=== PATIENT | male | born 1955 | race Caucasian/White ===

== ENCOUNTER 2019-08-22 19:34 | Emergency (ER) | payer MEDICAID ==
[~2019-08-22] VITALS: Ht 170.2 cm; Wt 116.8 kg
[~2019-08-22 19:34] MED LIST: ATENOLOL PO; LISINOPRIL PO; PRAVASTATIN PO
[2019-08-22 20:04] LABS: BASOPHILS # (AUTO) 0.1 X10'3 (0-0.2); EOSINOPHILS # (AUTO) 0.4 X10'3 (0-0.9); EOSINOPHILS % (AUTO) 3.3 % (0-6); HEMOGLOBIN 16.1 g/dl (14.0-17.9); LYMPHOCYTES # (AUTO) 2.3 X10'3 (1.1-4.8); LYMPHOCYTES % (AUTO) 20.8 % (21-51); MEAN CORPUSCULAR HEMOGLOBIN 31.8 PG (27.0-31.0); MEAN CORPUSCULAR VOLUME 90.8 FL (78-98); MEAN PLATELET VOLUME 8.4 FL (7.4-10.4); MONOCYTES # (AUTO) 0.8 X10'3 (0-0.9); MONOCYTES % (AUTO) 7.6 % (2-12); NEUTROPHILS # (AUTO) 7.4 X10'3 (1.8-7.7); NEUTROPHILS % (AUTO) 67.3 % (42-75); PLATELET COUNT 243 X10'3 (140-440); RED BLOOD COUNT 5.06 X10'6 (4.70-6.10); RED CELL DISTRIBUTION WIDTH 14.5 % (11.5-14.5); WHITE BLOOD COUNT 10.9 X10'3 (4.5-11.0)
[2019-08-22 20:18] LABS: ALANINE AMINOTRANSFERASE 38 U/L (12-78); ALBUMIN 4.3 G/DL (3.4-5.0); ALBUMIN/GLOBULIN RATIO 1.1 (1.1-1.5); ALKALINE PHOSPHATASE 106 IU/L (46-116); ANION GAP 11 (8-16); ASPARTATE AMINO TRANSFERASE 22 U/L (10-37); BILIRUBIN,TOTAL 0.7 MG/DL (0.1-1.0); BLOOD UREA NITROGEN 15 MG/DL (7-18); BUN/CREATININE RATIO 15.5 (5.4-32.0); CALCIUM 9.5 MG/DL (8.5-10.1); CHLORIDE 104 MMOL/L (99-107); CREATININE 0.97 MG/DL (0.60-1.10); GLUCOSE 102 MG/DL (70-104); POTASSIUM 4.1 MMOL/L (3.5-5.1); SODIUM 139 MMOL/L (135-145); TOTAL PROTEIN 8.1 G/DL (6.4-8.2); eGFR 78 ML/MIN
[2019-08-22 20:22] LABS: TROPONIN I < 0.04 NG/ML (0.0-0.05)
[2019-08-22 20:41] LABS: PARTIAL THROMBOPLASTIN TIME 30 SECONDS (22-32)
[2019-08-22 20:55] VITALS: BP 109/68
== END 2019-08-22 20:57 | disposition home or self-care (01) ==
LOC: ER 19:35
DX: I48.20 Chronic atrial fibrillation, unspecified (principal); E78.00 Pure hypercholesterolemia, unspecified; I10 Essential (primary) hypertension; G47.30 Sleep apnea, unspecified; Z87.891 Personal history of nicotine dependence
CPT/HCPCS: 36415; 71045; 80053; 84484; 85025; 85610; 85730; 93005; 99284

== ENCOUNTER 2020-03-06 01:31 | Emergency (ER) | payer MEDICAID ==
[~2020-03-06] VITALS: Ht 170.2 cm; Wt 116.8 kg
[2020-03-06] MEDS ORDERED: APIX5TAB3 PO (01:53)
[2020-03-06 01:54] LABS: BASOPHILS # (AUTO) 0.1 X10'3 (0-0.2); BASOPHILS % (AUTO) 0.8 % (0-1); EOSINOPHILS # (AUTO) 0.3 X10'3 (0-0.9); EOSINOPHILS % (AUTO) 3.1 % (0-6); HEMATOCRIT 45.2 % (42.0-52.0); HEMOGLOBIN 15.3 g/dl (14.0-17.9); LYMPHOCYTES # (AUTO) 2.5 X10'3 (1.1-4.8); LYMPHOCYTES % (AUTO) 27.8 % (21-51); MEAN CORPUSCULAR HEMOGLOBIN 31.2 PG (27.0-31.0); MEAN CORPUSCULAR HGB CONC 33.9 g/dL (33.0-36.5); MEAN CORPUSCULAR VOLUME 92.2 FL (78-98); MEAN PLATELET VOLUME 8.4 FL (7.4-10.4); MONOCYTES # (AUTO) 0.8 X10'3 (0-0.9); MONOCYTES % (AUTO) 8.7 % (2-12); NEUTROPHILS # (AUTO) 5.4 X10'3 (1.8-7.7); NEUTROPHILS % (AUTO) 59.6 % (42-75); PLATELET COUNT 248 X10'3 (140-440)
[2020-03-06] MEDS ORDERED: FLUT16SP10 NAS (01:55)
[2020-03-06 02:02] LABS: ALANINE AMINOTRANSFERASE 34 U/L (12-78); ALBUMIN 4.2 G/DL (3.4-5.0); ALBUMIN/GLOBULIN RATIO 1.4 (1.1-1.5); ALKALINE PHOSPHATASE 93 IU/L (46-116); ANION GAP 7 (8-16); ASPARTATE AMINO TRANSFERASE 24 U/L (10-37); BILIRUBIN,TOTAL 0.5 MG/DL (0.1-1.0); BLOOD UREA NITROGEN 17 MG/DL (7-18); BUN/CREATININE RATIO 14.8 (5.4-32.0); CALCIUM 9.2 MG/DL (8.5-10.1); CHLORIDE 106 MMOL/L (99-107); CREATININE 1.15 MG/DL (0.60-1.10); GLUCOSE 122 MG/DL (70-104); POTASSIUM 3.9 MMOL/L (3.5-5.1); SODIUM 140 MMOL/L (135-145); TOTAL PROTEIN 7.3 G/DL (6.4-8.2); eGFR 64 ML/MIN
[2020-03-06 02:10] LABS: LIPASE 226 U/L (73-393)
[2020-03-06] MEDS ORDERED: metoclopramide 5 mg/ml inj IV ONE (02:20)
[2020-03-06 03:29] VITALS: BP 146/78
== END 2020-03-06 03:27 | disposition home or self-care (01) ==
LOC: ER 01:31
DX: K80.50 Calculus of bile duct without cholangitis or cholecystitis without obstruction (principal); E66.01 Morbid (severe) obesity due to excess calories; I48.91 Unspecified atrial fibrillation; E78.00 Pure hypercholesterolemia, unspecified; I10 Essential (primary) hypertension; Z98.890 Other specified postprocedural states; Z79.899 Other long term (current) drug therapy; Z79.01 Long term (current) use of anticoagulants
CPT/HCPCS: 36415; 71045; 76700; 80053; 83690; 84484; 85025; 93005; 96374; 99285; J2765

== ENCOUNTER 2025-05-24 10:38 | Emergency (ER) | payer MEDICARE, MEDICAID ==
[~2025-05-24] VITALS: Ht 170.2 cm; Wt 85.0 kg
[~2025-05-24 10:38] MED LIST changes: +APIX5TAB3 PO; +FLUT16SP10 NAS
[2025-05-24 10:42] VITALS: BP 132/85; PULSE 82; RESP 16; TEMP 97; O2SAT 97
[2025-05-24] MEDS ORDERED: MECL-302 PO (11:08)
--- NOTE | 2025-05-24 11:08 | Physician Documentation ---
History of Present Illness ~ Chief Complaint: See Chief Complaint Stated Complaint: DIZZINESS Time Seen by MD: 10:46 OK to notify your PCP?: Yes Primary Medical Doctor: TANISHA Source: patient Mode of Arrival: POV Exam Limitations: no limitations HPI This is a 62-year-old male who comes in complaining of a couple episodes of dizziness. The patient states that is in the past couple of days he said it an episode or two of feel like the room was spinning when he bent over to tie his shoes. The episodes were very brief. He denies visual disturbances. He denies distal numbness tingling weakness. He denies change in mental status. They went to an urgent care yesterday who told him he. Well however the patient wanted to get seen again. Right now he states he has not no symptoms Medication Reconciliation Allergies: Coded Allergies: No Known Allergies (Unverified , 07/06/14) Scheduled Apixaban (Eliquis), 1 TAB PO Q12H, (Reported) Fluticasone Propionate (Flonase), 50 MG BECKY PRN, (Reported) [Atenolol], PO DAILY, (Reported) [Lisinopril], PO DAILY, (Reported) [Pravastatin], PO DAILY, (Reported) Past Medical History Past Medical History: Atrial Fibrillation, High Cholesterol, Hypertension, *PULMONARY*, Hernia Other Past Surgical History: Hernia repair surgery Alcohol Use: None Drug Use: none Lives In: Home Physical Exam Vital Signs: Temperature: 97.0, Source: Temporal, Heart Rate: 82, Respiratory Rate: 16, BP: 132/85, Pulse Oximetry: 97, Weight: 85.030 Pulse Oximetry Reflects: adequate oxygenation General Appearance: alert, WD/WN, no apparent distress Neck: non-tender, full range of motion Pupils/EOM/Fundus: PERRLA, EOM intact EENT: normal ENT inspection Respiratory: no respiratory distress Chest: no accessory muscle use Cardiovascular: normal peripheral pulses, regular rate, rhythm, no edema, no gallop Skin: warm/dry, normal color Orientation / Memory / CN: oriented x3, memory intact, student advisor II-XII nml as tested, normal speech Coordination / Gait: normal gait Motor / Sensory: no motor deficit Cerebellar Function: normal Progress Results/Orders Results/Orders Vital Signs 05/24/25 10:42 Temp 97.0 Pulse 82 Resp 16 B/P (MAP) 132/85 Pulse Ox 97 Medical Decision Making Findings With a bridge to well-appearing in no apparent distress. He is asymptomatic and has been for a couple of days. He had one episode of feeling like the room is spinning after bending over to tie his shoes. He has no focal neuro deficits or any other findings on physical examination. The patient initially thought it his blood pressure was high which may have caused the episode however he does take blood pressure medication in his blood pressure has been appropriate. I see no need for any workup or imaging at this time has a have no concern for CVA. I told the patient I will send him home with a prescription for meclizine that you can take if he has not other episode however if he has a more significant symptoms he needs to return to the ER immediately. Otherwise you follow up with the primary care physician for which he already has not upcoming appointment Additional Information Benign paroxysmal positional vertigo. Hypertension. Doubt significant neurovascular etiologies Departure Disposition: HOME / SELF CARE / HOMELESS Impression: Primary Impression: Dizziness Condition: Stable Discharge Instructions: Benign Positional Vertigo Additional Instructions: As we discussed I suspect your symptoms are secondary to vertigo. I will prescribe him medication that you can take if you have another episode. If you have any worsening or concerning symptoms such as visual disturbances, weakness on one side of your body, mental confusion or any concerns you should return to the ER immediately. Otherwise follow up with the primary care physician at your upcoming pre-existing appointment Referrals: NO PRIMARY CARE PROVIDER (PCP) Prescriptions Meclizine HCl (Meclizine HCl) 25 Mg Tablet 1-2 TAB PO Q8H for dizziness, #20 TAB Prov: MATT BULLARD 05/24/25 Signature Scribe Signature: No scribe Attestation: The note accurately reflects work and decisions made by me.Matt WALTON 05/24/25 11:08 MATT BULLARD May 24, 2025 11:08
== END 2025-05-24 11:12 | disposition home or self-care (01) ==
LOC: ER 10:39
DX: R42 Dizziness and giddiness (principal); E78.00 Pure hypercholesterolemia, unspecified; I10 Essential (primary) hypertension; I48.91 Unspecified atrial fibrillation; Z98.890 Other specified postprocedural states; Z79.899 Other long term (current) drug therapy
CPT/HCPCS: 99282